=== PATIENT | male | born 2000 | race Caucasian/White ===

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

== ENCOUNTER 2020-12-05 17:59 | Emergency (ER) | payer BC ==
[2020-12-05] MEDS ORDERED: LIDOCAINE 1% INJ 10MG/ML (20 ML MDV) SQ ONE (18:11)
[2020-12-05 18:17] VITALS: BP 125/79; PULSE 95; RESP 15; TEMP 97.8
--- NOTE | 2020-12-05 18:40 | ED ---
Wound/Laceration HPI - General Chief Complaint: Wound/Laceration Stated Complaint: forehead lac Source: patient Mode of arrival: ambulatory Limitations: no limitations - History of Present Illness Initial Comments: 20-year-old male presented for chief complaint of left eyebrow laceration. Patient states that he is plain fastball when he tripped and fell landed on him he states that he hit his face on the ground. He states he did not lose consciousness he denies blood thinners or bleeding diathesis. He denies any headache nausea vomiting visual changes he denies any neck pain or stiffness. Patient denies any repetitive questioning or confusion. Patient denies any dizziness or feeling off balance. Patient states the laceration he thought might need repair presented to the ER for possible sutures. Remaining review of system negative patient states tetanus is up-to-date. - Related Data Allergies Allergy/AdvReac Type Severity Reaction Status Date / Time Penicillins Allergy Unknown Verified 12/05/20 18:17 Childhood Review of Systems ROS Statement: Those systems with pertinent positive or pertinent negative responses have been documented in the HPI. ROS Other: All systems not noted in ROS Statement are negative. Past Medical History Past Medical History: No Reported History History of Any Multi-Drug Resistant Organisms: MRSA Date of last positivie culture/infection: 2012 MDRO Source:: nose Past Surgical History: No Surgical Hx Reported Past Psychological History: No Psychological Hx Reported Smoking Status: Never smoker Past Alcohol Use History: None Reported Past Drug Use History: None Reported General Exam - General Exam Comments Initial Comments: General: The patient is awake and alert, in no distress Eye: +3 mm pupils are equal, round and reactive to light, extra-ocular movements are intact. No nystagmus. There is normal conjunctiva bilaterally. No signs of icterus. Ears, nose, mouth and throat: There are moist mucous membranes and no oral lesions. No raccoon or Bishop sign Neck: The neck is supple, there is no tenderness or JVD. No midline tenderness to palpation of the cervical spine. Cardiovascular: There is a regular rate and rhythm. No murmur, rub or gallop is appreciated. Respiratory: Lungs are clear to auscultation, respirations are non-labored, breath sounds are equal. No wheezes, stridor, rales, or rhonchi. Musculoskeletal: Normal ROM, no tenderness. Strength 5/5. Sensation intact. Radial pulses equal bilaterally 2+. Neurological: A&O x 3. CN II-XII intact, There are no obvious motor or sensory deficits. Coordination appears grossly intact. Speech is normal. Skin: Skin is warm and dry and no rashes. 2.5cm laceration through the left eyebrow horizontal orientation Psychiatric: Cooperative, appropriate mood & affect, normal judgment. Limitations: no limitations Course Vital Signs 12/05/20 18:14 Temperature 97.8 F Pulse Rate 95 Respiratory 15 Rate Blood Pressure 125/79 O2 Sat by Pulse 97 Oximetry Procedures - Laceration Laceration #1 Consent Obtained: verbal consent Indication: laceration Site: face Size (cm): 2 (actual 2.5cm) Description: linear Depth: simple, single layer Anesthetic Used: lidocaine 1% Anesthesia Technique: local infiltration Amount (mls): 1 Pre-repair: wound explored, irrigated extensively, deep structures intact Type of Sutures: nylon Size of Sutures: 6-0 Number of Sutures: 6 Technique: simple, interrupted Patient Tolerated Procedure: well, no complications Medical Decision Making - Medical Decision Making The irrigation cleansing iodine laceration was closed using 6 6. 0 nylon sutures. Patient tolerated the procedure well and was discharged. Care return parameters were discussed at length patient verbalized understanding. Patient had no signs of concussion he denies any headache dizziness vision changes he denied loss of consciousness there is no focal neurological deficits are is no history of repetitive questioning. Disposition Clinical Impression: Eyebrow laceration, Laceration of left eyebrow Disposition: HOME SELF-CARE Condition: Good Instructions (If sedation given, give patient instructions): Care For Your Stitches (ED), Facial Laceration (ED) Additional Instructions: Please use topical medications as discussed. Please follow-up with family doctor in the next 2 days. Return for suture removal in 5 days Please return to emergency room if the symptoms increase or worsen or for any other concerns. Is patient prescribed a controlled substance at d/c from ED?: No Referrals: Amina Burns DO [Primary Care Provider] - 1-2 days Time of Disposition: 18:40
[2020-12-05] MEDS ORDERED: BACITRACIN OINT 1 EACH PACKET TOPICAL ONE (18:49)
== END 2020-12-05 18:56 | disposition home or self-care (01) ==
LOC: EC 17:59
DX: S01.112A Laceration without foreign body of left eyelid and periocular area, initial encounter (principal); Z88.0 Allergy status to penicillin; W01.198A Fall on same level from slipping, tripping and stumbling with subsequent striking against other object, initial encounter; Y93.64 Activity, baseball; Y92.320 Baseball field as the place of occurrence of the external cause
CPT/HCPCS: 99282; 12011; J2001